=== PATIENT | male | born 1975 | race Caucasian/White ===

== ENCOUNTER 2021-07-29 11:55 | Inpatient (IN) | payer OTHER ==
[2021-07-29 12:46] VITALS: BMI 16.9
[2021-07-29] MEDS ORDERED: clonazePAM 0.5 MG ODT TABLETS SL PRN (15:46)
[2021-07-29] MEDS ORDERED: BISMUTH SUBSALICYLATE 524 MG/30 ML PO PRN (15:46)
[2021-07-29] MEDS ORDERED: MAG HYDROX/AL HYDROX/SIMETH 30 ML UNIT-DOSE CUP PO PRN (15:46)
[2021-07-29] MEDS ORDERED: MAGNESIUM CITRATE 300 ML BOTTLE PO PRN (15:46)
[2021-07-29] MEDS ORDERED: ACETAMINOPHEN 325 MG TABLET (FP) PO PRN ×2 (15:46)
[2021-07-29] MEDS ORDERED: IBUPROFEN 400 MG TABLET (FP) PO PRN (15:46)
[2021-07-29] MEDS ORDERED: cloNIDine HCL 0.1 MG TABLET PO PRN (15:46)
[2021-07-29] MEDS ORDERED: MENTHOL/PHENOL 1 EACH UD MM PRN (15:46)
[2021-07-29] MEDS ORDERED: ONDANSETRON *ODT* 4 MG TABLET SL PRN (15:46)
[2021-07-29] MEDS ORDERED: MAGNESIUM HYDROX 2400MG/30ML ORAL SUSPENSION 30 ML CUP PO PRN (15:46)
[2021-07-29] MEDS ORDERED: hydrOXYzine PAMOATE 25 MG CAPSULE (FP) PO PRN (15:56)
[2021-07-29] MEDS ORDERED: methaDONE HCL 10 MG TABLET (FOR DETOX USE ONLY) PO ONE (17:15)
[2021-07-29] MEDS ORDERED: hydrOXYzine PAMOATE 25 MG CAPSULE (FP) PO SCH (18:00)
[2021-07-29] MEDS: diazePAM 5 MG TABLET PO SCH ×2 (19:07→23:27)
[2021-07-29] MEDS: NICOTINE 21 MG/24 HOURS TOPICAL PATCH TD SCH (19:08)
[2021-07-29] MEDS: MELATONIN 5 MG TABLETS PO SCH (23:27)
[2021-07-29] MEDS: THIAMINE HCL 100 MG TABLET (FP) PO SCH (23:27)
[2021-07-30] MEDS: diazePAM 5 MG TABLET PO SCH ×4 (06:38→22:33)
[2021-07-30] MEDS: METHOCARBAMOL 500 MG TABLET PO PRN ×3 (06:39→22:37)
[2021-07-30] MEDS ORDERED: methaDONE HCL 10 MG TABLET (FOR DETOX USE ONLY) ONE (09:32)
[2021-07-30] MEDS: NICOTINE 10 MG CARTRIDGE (INHALER) IH PRN ×2 (10:37→14:46)
[2021-07-30] MEDS: NICOTINE 21 MG/24 HOURS TOPICAL PATCH TD SCH (10:39)
[2021-07-30] MEDS: PRENATAL VITAMINS W/ FOLIC ACID TABLET (FP) PO SCH (10:40)
[2021-07-30] MEDS: diazePAM 5 MG TABLET PO PRN (14:46)
[2021-07-30 16:08] LABS: HEMATOCRIT 41.7 % (35.4-49); HEMOGLOBIN 14.2 GM/dL (11.7-16.9); MCH 26.9 pg (25.7-33.7); MCHC 34.1 g/dl (32.0-35.9); MEAN PLT VOLUME 7.9 fl (7.5-11.1); PLATELET COUNT 236 10^3/uL (134-434); RBC 5.28 M/mm3 (4.00-5.60); RDW 14.1 % (11.9-15.9); WHITE BLOOD COUNT 5.4 K/mm3 (4.0-10.0)
[2021-07-30 16:45] LABS: ALBUMIN 3.2 g/dl (3.4-5.0); BLOOD UREA NITROGEN 8.6 mg/dL (7-18); CALCIUM 9.2 mg/dL (8.5-10.1)
[2021-07-30 16:48] LABS: BILIRUBIN,TOTAL 0.8 mg/dL (0.2-1)
[2021-07-30 16:49] LABS: CREATININE 0.8 mg/dL (0.55-1.3)
[2021-07-30] MEDS: THIAMINE HCL 100 MG TABLET (FP) PO SCH (22:33)
[2021-07-30] MEDS: MELATONIN 5 MG TABLETS PO SCH (22:33)
[2021-07-31] MEDS: diazePAM 5 MG TABLET PO PRN ×3 (01:52→18:56)
[2021-07-31] MEDS: diazePAM 5 MG TABLET PO SCH ×2 (06:08→14:40)
[2021-07-31] MEDS: METHOCARBAMOL 500 MG TABLET PO PRN ×2 (06:08→19:00)
[2021-07-31] MEDS ORDERED: methaDONE HCL 10 MG TABLET (FOR DETOX USE ONLY) PO ONE (10:00)
[2021-07-31] MEDS: PRENATAL VITAMINS W/ FOLIC ACID TABLET (FP) PO SCH (10:08)
[2021-07-31] MEDS: NICOTINE 21 MG/24 HOURS TOPICAL PATCH TD SCH (10:10)
[2021-07-31 13:06] VITALS: TEMP 96.9
[2021-07-31 19:50] VITALS: BP 113/82; PULSE 82
[2021-08-01] MEDS ORDERED: diazePAM 5 MG TABLET PO SCH (06:00)
[2021-08-02] MEDS ORDERED: diazePAM 5 MG TABLET PO ONE (06:00)
[2021-08-02] MEDS ORDERED: methaDONE HCL 10 MG TABLET (FOR DETOX USE ONLY) PO ONE (10:00)
== END 2021-07-31 20:57 | disposition left against medical advice (07) | DRG 770 ==
LOC: YASAS 11:55 → Y3N 16:34
PROVIDERS: ADMIT Allergy & Immunology; ATTEND Allergy & Immunology
PROC: HZ2ZZZZ Detoxification Services for Substance Abuse Treatment (ICD-10-PCS; principal; 2021-07-29)
DX: F11.23 Opioid dependence with withdrawal (principal); F10.230 Alcohol dependence with withdrawal, uncomplicated; F14.20 Cocaine dependence, uncomplicated; F17.210 Nicotine dependence, cigarettes, uncomplicated; R63.4 Abnormal weight loss; Z68.1 Body mass index [BMI] 19.9 or less, adult; Z86.19 Personal history of other infectious and parasitic diseases
CPT/HCPCS: 36415; 80053; 85027; 86780; 93005; 93010; C9803; U0003; U0005